=== PATIENT | female | born 1950 | race Caucasian/White ===

== ENCOUNTER 2021-12-23 14:43 | Emergency (ER) | payer MEDICARE, OTHER, SELFPAY ==
[2021-12-23] VITALS (11 sets, daily range): BP systolic 133–190; BP diastolic 56–84; PULSE 60–73; RESP 16–22; TEMP 36.3–36.7; O2SAT 93–99; BMI 24.7
--- NOTE | 2021-12-23 14:41 | ECG_ITS ---
APPROVED REPORT Exam: Resting ECG HR:75 bpm ECG Measurements Heart Rate 75 AXES RI 215 P 39 QRSd 146 QRS -13 QT 421 T 128 QTc 450 Conclusion SINUS RHYTHM WITH FIRST DEGREE AV BLOCK LEFT BUNDLE BRANCH BLOCK [120+ ms QRS DURATION, 80+ ms Q/S IN V1/V2, 85+ ms R IN I/aVL/V5/V6] ABNORMAL ECG UNCONFIRMED REPORT Electronically signed by : Dylan Galicia MD 12/25/2021 15:14:18
--- NOTE | 2021-12-23 14:53 | XR_ITS ---
PROCEDURE INFORMATION: Exam: XR Chest Exam date and time: 12/23/2021 3:14 PM Age: 71 years old Clinical indication: Angina; Additional info: Chest pain TECHNIQUE: Imaging protocol: Radiologic exam of the chest. Views: 2 views. COMPARISON: No relevant prior studies available. FINDINGS: Lungs: Unremarkable. No consolidation. Pleural spaces: Unremarkable. No pleural effusion. No pneumothorax. Heart/Mediastinum: Unremarkable. No cardiomegaly. Bones/joints: Unremarkable. IMPRESSION: No acute findings.
[2021-12-23 15:02] LABS: Basophils # 0.1 K/mm3 (0-0.2); Eosinophils # 0.1 K/mm3 (0.0-0.4); Eosinophils % 1.1 % (0.1-12.0); Hematocrit 38.8 % (37.0-47.0); Hemoglobin 13.3 g/dL (12.2-16.2); Lymphocytes # 3.5 K/mm3 (0.7-4.5); Lymphocytes % 29.6 % (10-50); Mean Corpuscular HGB Conc 34.1 g/dL (31.8-35.4); Mean Corpuscular Hemoglobin 28.6 pg (27.0-31.2); Mean Corpuscular Volume 83.8 fl (81-99); Monocytes # 0.7 K/mm3 (0.1-1.0); Monocytes % 6.1 % (1.7-9.3); Neutrophils # 7.3 K/mm3 (1.8-7.8); Neutrophils % 62.2 % (37.0-80.0); Platelet Count 364 K/mm3 (142-424); Red Blood Count 4.64 M/mm3 (4.20-5.40); Red Cell Distribution Width 14.9 % (11.5-17.5); White Blood Count 11.8 K/mm3 (4.8-10.8)
[2021-12-23 15:03] LABS: Chloride 100 mmol/L (98-107); Potassium 4.6 mmoL/L (3.5-5.1); Sodium 136 mmol/L (136-145)
[2021-12-23 15:06] LABS: Anion Gap 19.6 mEq/L (5-15); Blood Urea Nitrogen 12 mg/dl (7-17); Calcium 9.4 mg/dl (8.4-10.2); Carbon Dioxide 21 mmol/L (22.0-30.0); Creatinine Clearance Estimated 55 mL/min (50-200); Estimated Glomerular Filt Rate 49 ml/min (>60); GFR (African American) 60 ML/MIN (>60); Glucose 116 mg/dl (74-100)
--- NOTE | 2021-12-23 15:15 | PC.NURSE ---
RUKHSANA AMES at bedside.
[2021-12-23 15:20] LABS: Troponin I < 0.01 ng/ml (0.00-0.034)
--- NOTE | 2021-12-23 15:21 | PC.NURSE ---
Pt transported to radiology via wheelchair.
--- NOTE | 2021-12-23 15:26 | PC.NURSE ---
Pt returned from radiology.
--- NOTE | 2021-12-23 15:49 | HMH.EDCP ---
Discharge Plan Disposition Patient Disposition: Home, Self-Care Condition: Good Referrals Follow up/Referrals: Sonido Melton APRN [Primary Care Provider] - See instructions Clinical Impressions Clinical Impression: Arm numbness left Discharge ED Provider: Lux Vazquez Chest Pain HPI General Chief Complaint: Chest Pain Stated Complaint: Chest Pain Time Seen by Provider: 12/23/21 15:00 Mode of Arrival: Ambulatory Source of Information: Patient Limitations: No Limitations Description of Symptoms (Recalled from ER Triage Doc. by RN): pt reports tingling radiating down L arm that started about 2 weeks ago, saw Sonido on , sees Dr Coffman on Saturday due to abnormal EKG taken on , denies SOB History of Present Illness HPI narrative: This is a 71-year-old female with history of ACS status post stenting currently on aspirin and Plavix, CVA with right-sided residual numbness who is presenting with left upper extremity tingling. Patient states that left upper extremity tingling has been going on for approximately 2 months. Today, she was lying down when she noticed that it got acutely more numb. Because of this, she came to the ED for further evaluation. Patient denies chest pain, shortness of breath, nausea, vomiting, diaphoresis, weakness, left lower extremity deficits, cranial nerve deficits. She also denies any trauma, fevers, chills, or any other concerning history GAGANDEEP Score for Stemi Age of Patient: 60-69 years old Heart Rate: 50-69 bpm Systolic Blood Pressure: 120-139 mmhg Serum Creatinine: 0.80-1.19 mg/dl CHF Killip Class: I-No CHF Other Risk Factors: ST Segment Deviation Stemi Risk Score: 130 Risk Stratification: 126-154 = Intermediate Risk Related Data Allergies Allergy/AdvReac Type Severity Reaction Status Date / Time No Known Allergies Allergy Verified 12/23/21 14:50 PFSH PFSH Social History Smoking Status: Current every day smoker alcohol intake: former current occupational status: unemployed Travel in the last 8 weeks: None ROS Obtained: Yes All systems reviewed & no additional complaints except as documented Physical Exam General General appearance: alert and in no apparent distress Head Head exam: atraumatic, normocephalic and normal inspection Eye Eye exam: Present normal appearance, PERRL and EOMI ENT ENT exam: Present normal exam, normal oropharynx, mucous membranes moist, TM's normal bilaterally and normal external ear exam Neck Neck exam: Present normal inspection, full ROM and trachea midline; Absent meningismus or lymphadenopathy Chest Chest inspection: Present normal inspection and symmetric chest wall rise; Absent tenderness Respiratory Respiratory exam: Present normal lung sounds bilaterally; Absent respiratory distress Cardiovascular Cardiovascular exam: Present regular rate and normal rhythm; Absent JVD Abdominal Exam Abdominal exam: Present soft and normal bowel sounds; Absent distention, tenderness or guarding Extremities Exam Extremities exam: Present normal inspection, full ROM and normal capillary refill; Absent calf tenderness Back Exam Back exam: Present normal inspection; Absent tenderness Neurological Exam Neurological exam: Present alert, oriented X3, CN II-XII intact and motor sensory deficit (Subjectively decreased feeling in left upper extremity as compared to normal. Motor strength intact. Right upper and lower extremity numbness at baseline.) Psychiatric Psychiatric exam: Present normal affect and normal mood Skin Skin exam: Present warm, dry, intact and normal color Lymphatic Lymphatic Findings: no adenopathy Medical Decision Making Medical Records Medical records reviewed: Yes I reviewed the patient's medical records. Chinedu Inquiry Pt receiving controlled substance: No Vital Signs: 12/23/21 14:43 12/23/21 15:00 12/23/21 15:30 Temperature 98.1 F Temperature Source Oral Pulse Rate 72 72 Pulse Rate [Right Radial] 73
--- NOTE | 2021-12-23 17:42 | PC.NURSE ---
ED MD AT BEDSIDE TO UPDATE PT AND FAMILY
--- NOTE | 2021-12-23 18:03 | PC.NURSE ---
pt family member requested to speak with the md tawana advised
[2021-12-23 18:32] LABS: Troponin I < 0.01 ng/ml (0.00-0.034)
== END 2021-12-23 19:04 | disposition home or self-care (01) ==
PROVIDERS: Emergency Provider Emergency Medicine; PCP Nurse Practitioner Family
DX: R07.9 Chest pain, unspecified (principal); R20.2 Paresthesia of skin; I10 Essential (primary) hypertension; I25.10 Atherosclerotic heart disease of native coronary artery without angina pectoris; E78.5 Hyperlipidemia, unspecified; F17.200 Nicotine dependence, unspecified, uncomplicated; Z86.73 Personal history of transient ischemic attack (TIA), and cerebral infarction without residual deficits; N17.9 Acute kidney failure, unspecified; I44.7 Left bundle-branch block, unspecified; Z79.02 Long term (current) use of antithrombotics/antiplatelets; Z79.82 Long term (current) use of aspirin; Z79.899 Other long term (current) drug therapy; Z56.0 Unemployment, unspecified
CPT/HCPCS: 36415; 71046; 80048; 84484; 85025; 93005; 96360; 99285

== ENCOUNTER 2021-12-25 09:20 | Day surgery (SDC) | payer MEDICARE, OTHER, SELFPAY ==
[2021-12-25] VITALS (21 sets, daily range): BP systolic 98–171; BP diastolic 31–104; PULSE 50–71; RESP 16–20; TEMP 36.6; O2SAT 93–100; BMI 24.5; BMI 24.7
--- NOTE | 2021-12-25 | IR_ITS ---
APPROVED REPORT Patient Location: Inpatient PROCEDURES Left heart catheterization Left ventriculogram Selective coronary angiogram Drug-eluting stent deployment to the proximal mid and distal right coronary artery Bilateral selective renal angiography Drug-eluting stent deployment to the left renal artery INDICATION Coronary artery disease, New onset left bundle branch, New onset and accelerated angina pectoris, Accelerated and poorly controlled hypertension, Suspect renal artery stenosis, Renal artery stenosis, Informed consent was obtained prior to the procedure. COMPLICATIONS none Estimated Blood Loss: less than 10 ml TECHNIQUE One percent lidocaine used to anesthetize the right anterior aspect of the wrist. The right radial artery was accessed via the Seldinger technique. A 6 Latvian sheath was placed in the right radial artery. 2.5 mg of verapamil, 800 mcg of nitroglycerin, 1mg Lidocaine and 5000 U Heparin were given through the arterial sheath. The papa catheter was also used to perform left heart catheterization, left ventriculogram and selective coronary angiogram. At the end the diagnostic angiogram therapeutic heparin was administered giving a therapeutic ACT and the guide catheter was placed in the right coronary followed by a Choice PT extra-support wire. A 3 mm x 38 mm Xience drug-eluting stent was deployed at 20 and then 22 vasiliy reducing the stenosis to 0%. An additional 3 mm x 38 mm Xience drug-eluting stent was placed proximal to the for stent yet still overlapping it and deployed at 24 vasiliy. An additional 2.5 x 12 mm resolute [place] stent was placed distal to the first stent placed yet still overlapping the distal aspect and deployed at 24 vasiliy. The balloon was brought back and deployed at 24 vasiliy to mesh between the 2 stents. JOANN II flow was present at the beginning the procedure with JOANN-3 flow at the end the procedure. After achieving excellent angiograph results the catheter was used to perform bilateral selective renal angiography. The guide catheter was placed in the left renal artery followed by a Choice PT extra-support wire. A 4 mm x 28 mm Xience drug-eluting stent was deployed at 22 vasiliy reducing the critical stenosis throughout the renal artery to 0%. At the end of the procedure the apparatus was removed the sheath was removed good hemostasis was achieved using TR banding patient was transferred to the postop putting in stable condition ANGIOGRAPHIC RESULTS The left main artery Has a distal 30% stenosis The left anterior descending artery Is proximally normal and then has mid vessel 30% stenosis followed by distal 30% stenoses. JOANN II flow was present The circumflex artery Is nondominant yet still large vessel with a mid vessel 40% stenosis at the bifurcation of the first and second obtuse marginal artery The right coronary artery Is dominant and has an anterior takeoff which has a proximal 70% followed by 50% followed by mid vessel 90% stenosis this all represents in-stent restenosis The MOSS ventriculogram reveals Normal 65% The left ventricular end-diastolic pressure 10 mmHg Right renal artery singular normal Left renal artery singular and has diffuse proximal and mid vessel 90% stenoses IMPRESSION Coronary disease as described above with successful stenting from the proximal mid and distal segment with 3 contiguous stents Normal ejection fraction Elevated LVEDP Severe left renal artery stenosis Successful stenting left renal artery severe disease reduced to 0% with 1 long drug-eluting stent PLAN 1. Dual antiplatelet therapy 2. Avoidance of tobacco products 3. LDL less than 55 to be achieved with high intensity statin 4. Cardiac rehabilitation 5.
[2021-12-25 09:32] LABS: Coronavirus 19, PCR Not Detected (NotDetected); Influenza A, PCR Not Detected (NotDetected); Influenza B, PCR Not Detected (NotDetected)
--- NOTE | 2021-12-25 14:04 | HMH.PHACL ---
PHA Quality Officer Discharge Med Marine Equipment Test Engineer: Marilee Hernandez has received discharge medication counseling on the following medications: -ASPIRIN (PREVIOUSLY TAKING) -ATENOLOL (PREVIOUSLY TAKING) -ATORVASTATIN (PREVIOUSLY TAKING) -CLOPIDOGREL (PREVIOUSLY TAKING) -NO OJ/ARB, PT BP CONTROLLED WITH AMLODIPINE PATIENT ASKED IF THE MD WAS CHANGING AROUND HER BLOOD PRESSURE MEDICATIONS TO INCLUDE A COMBINATION MEDICATION, I ASKED MEDARDO IN SIGNALING DESIGN ENGINEER AND SHE STATED NO CHANGES WERE MADE AND IF CHANGES WERE TO BE MADE REGARDING BP MEDS THAT WOULD BE ADDRESSED AT HER FOLLOW-UP CARDIOLOGY APPOINTMENT. THIS INFORMATION WAS RELAYED TO THE PATIENT AND SHE VERBALIZED NO ADDITIONAL QUESTIONS AT THIS TIME.
[2021-12-25 15:06] LABS: CATHL Activated Clotting Time 308 SEC (74-125)
[2021-12-26] VITALS: PULSE 70
[2021-12-26 04:00] VITALS: BP 139/54; PULSE 68; RESP 16; TEMP 37.1; O2SAT 93
--- NOTE | 2021-12-26 04:35 | PC.NURSE ---
pt has rested well this shift. A&OX4. dressing to cath site is CDI. no c/o pain this shift. CB is in reach.
[2021-12-26 05:00] VITALS: PULSE 70
--- NOTE | 2021-12-26 07:53 | EXP.PHA.VTE ---
[facility] Pharmacy VTE Monitoring Patient Demographics Admission date: 12/25/21 Report Date: 12/26/21 Time: 07:53 Patient Allergies No Known Allergies Allergy (Verified 12/25/21 08:32) Height: 1.7 m Weight: 71.668 kg Prophylaxis VTE Prophylaxis Ordered?: Yes Types of VTE Prophylaxis: TEDS Knee High Location of Applied Device: Bilateral Lower Extremeties
[2021-12-26 08:00] VITALS: BP 157/65; PULSE 76; RESP 16; TEMP 36.8; O2SAT 97
--- NOTE | 2021-12-26 09:15 | PC.NURSE ---
Educated patient about post heart cath radial site signs and symptoms of infection. Educated patient about limitations placed as she has a radial site from heart cath. Patient alert and oriented and able to verbalize understanding. Blue heart cath folder sent home with patient and educated patient on contents of folder. Radial site covered with telfa and tegaderm and dressing clean dry and intact before patient left floor with family member
--- NOTE | 2021-12-26 09:22 | HMH.PHAINT1 ---
Pharmacy Intervention Comments: clarified home medication list with list from clinic pharmacy.
== END 2021-12-26 10:00 | disposition home or self-care (01) ==
LOC: CATHLAB 09:22 → 2ND 15:08
PROVIDERS: Physician Assistant; PCP Nurse Practitioner Family; Visit Provider Internal Medicine
DX: I25.118 Atherosclerotic heart disease of native coronary artery with other forms of angina pectoris (principal); I10 Essential (primary) hypertension; I70.1 Atherosclerosis of renal artery; I44.7 Left bundle-branch block, unspecified; F17.210 Nicotine dependence, cigarettes, uncomplicated; Z79.899 Other long term (current) drug therapy; I77.1 Stricture of artery; Z20.822 Contact with and (suspected) exposure to COVID-19
CPT/HCPCS: 36251; 37236; 85347; 92928; 93458; 99152; 99153; 99285; C1725; C1769; C1875; C1876; C9600; C9803; J1644; Q9967; U0003; U0005

== ENCOUNTER → 2021-12-29 12:15 | Outpatient (CLI) | payer MEDICARE, OTHER, SELFPAY ==
--- NOTE | 2021-12-29 12:42 | CA_ITS ---
APPROVED REPORT EXAM: Comprehensive 2D, Doppler, and color-flow Echocardiogram Civil Attorney: Smitha Ferreira CRT Ht: 5 ft 7 in Wt: 157lbs BSA: 1.82 BP: 186/65 mmHg Indications: Abnormal ECG, Chest Pain, Shortness of Breath, CVA/TIA, Diabetes, Hyperlipidemia, Hypertension/HDD, smoker, 3 cardiac stents 12/25/21 and 1 renal stent 2D Dimensions LVOT 1.70 cm (M/F) 1.5-2.5 LA Volume 25.10 mL LA Volume Index 13.80 mL/m2 (M/F) 16-34 M-Mode Dimensions RVDd 2.02 cm (0.9-2.6) LA Diam 3.19 cm (1.9-4.0) LVDd 4.26 cm (3.5-5.7) Ao Diam 3.29 cm (2.0-3.7) LVDs 2.78 cm (3.5-5.7) IVSd 1.90 cm (0.6-1.1) PWd 0.72 cm (0.6-1.1) EF (Teich) 64.30% FS 34.70% EDV (Teich) 81.30 mL TAPSE 1.45 (<1.7) ESV (Teich) 29.00 mL LV Diastology E Decel Time 340.00 (160-240 msec) E/A Ratio 0.52 MED E' 4.10 (< 7 cm/sec) MED A' 9.10 cm/s E'/MED E' Ratio 12.10 (>14) LAT E' 5.20 (<10 cm/sec) LAT A' 8.00 cm/s E/LAT E' Ratio 9.54 (>14) Aortic Valve AO Peak GR. 9.30 mmHg Mitral Valve MV A Velocity 96.00 (40-130 cm/s) E/A Ratio 0.52 MV Decel. Time 340.00 (160-240 ms) Pulmonary Valve PV Peak Velocity 133.00 (50-150 cm/s) Tricuspid Valve TR P. Velocity 270.00 cm/s RAP Estimate 10.00 mmHg RVSP 39.10 mmHg Left Ventricle Technically difficult study because of the patient factors and poor acoustic windows. Left atrium is mildly enlarged, left ventricle is normal size mild concentric left ventricular hypertrophy, estimated ejection fraction 50%, there is moderate hypokinesis involving the inferior basal wall. Right Ventricle Right atrium and right ventricle are normal size and contractility. Aortic Valve Aortic valve is thickened and calcified without aortic stenosis or aortic insufficiency. Mitral Valve Mitral valve is grossly normal, there is trace mitral regurgitation. Tricuspid Valve Tricuspid valve grossly normal, there is trace tricuspid regurgitation, tricuspid regurgitation jet velocity is inadequate for calculation of the right ventricular systolic pressure. Pulmonic Valve Pulmonic valve is poorly visualized. Great Vessels Aortic root is normal size. Inferior vena cava is normal size with normal inspiratory collapse. Pericardium No significant pericardial effusion noted. Conclusion 1. Technically difficult study because of the patient factors and poor acoustic windows. Normal left ventricular size, mild concentric left ventricular hypertrophy, estimated ejection fraction approximately 50% with segmental wall motion abnormality described above, grade 1 diastolic dysfunction seen without tissue Doppler evidence of raise left atrial pressure. 2. Trace mitral and tricuspid regurgitation. 3. No significant pericardial effusion noted. 5. Inferior vena cava is normal size with normal inspiratory collapse. Electronically signed by : Michele Robbins MD 12/29/2021 14:56:11
--- NOTE | 2021-12-29 12:42 | CA_ITS ---
FINAL REPORT TECHNIQUE: Graded compression, spectral analysis and ultrasound images of the venous system of the upper extremity were obtained. CLINICAL HISTORY: swelling. Patient states she had an IV her left arm recently. She takes Plavix as well as 81 mg ASA daily. Recent heart cath with cardiac stents placed. FINDINGS: The jugular vein, subclavian vein, axillary vein, brachial vein, cephalic vein and basilic venous system are fully compressible and demonstrate no evidence of thrombosis. IMPRESSION: No evidence of thrombosis of the venous system of the left upper extremity. Reviewed, Interpreted and Dictated by Nikita Lagos MD Transcribed by Charissa Lyn Authenticated and [facility]
--- NOTE | 2021-12-29 12:42 | US_ITS ---
FINAL REPORT CLINICAL HISTORY: CLAUDICATION,COLD FEET,NUMBNESS FEET,DM,HTN,SMOKER,CAD,CVA FINDINGS: ANKLE/BRACHIAL INDICES FINDINGS: Pressure indices are as follows: RIGHT LOWER EXTREMITY: Ankle brachial pressure index: 0.52 Comments: Significantly depressed LEFT LOWER EXTREMITY: Ankle brachial pressure index: 0.52 Comments: Significantly depressed IMPRESSION: Moderate to severe arterial occlusive disease bilaterally. Consider a CTA for further evaluation. Reviewed, Interpreted and Dictated by Nikita Lagos MD Transcribed by José Miguel Castillo Authenticated and [facility]
--- NOTE | 2021-12-29 12:44 | CA_ITS ---
FINAL REPORT TECHNIQUE: Color Doppler, duplex Doppler and hutson scale sonography of the bilateral neck arterial vasculature was performed. Velocities were measured in the carotid arteries. Stenosis evaluation based on the validated velocity criteria. CLINICAL HISTORY: BRUIT,DM,CAD,SMOKER,HTN,HLD FINDINGS: The peak systolic velocity of the right common carotid artery is 71 cm/s. The peak systolic velocity of the right internal carotid artery is 123 cm/s and end diastolic velocity 26 cm/s. The ICA/CCA ratio is 1.7. A moderate amount of plaque is present at the carotid bifurcation. The right external carotid artery is patent. The right vertebral artery is patent with antegrade flow. The peak systolic velocity of the left common carotid artery is 76 cm/s. The peak systolic velocity of the left internal carotid artery is 153 cm/s and end diastolic velocity 20 cm/s. The ICA/CCA ratio is 2.0. A moderate amount of plaque is present at the carotid bifurcation. The left external carotid artery is patent.The left vertebral artery is patent with antegrade flow. IMPRESSION: Less than 50% bilateral carotid stenosis. Bilateral patent vertebral arteries with antegrade flow. If indicated, CTA or MRA could further evaluate. Reviewed, Interpreted and Dictated by Nikita Lagos MD Transcribed by Melissa Singh Authenticated and . [facility]
== END ==
PROVIDERS: PCP Nurse Practitioner Family; Visit Provider Physician Assistant
DX: M79.89 Other specified soft tissue disorders (principal); E78.5 Hyperlipidemia, unspecified; F17.200 Nicotine dependence, unspecified, uncomplicated; I10 Essential (primary) hypertension; I20.8 Other forms of angina pectoris; I44.7 Left bundle-branch block, unspecified; R06.09 Other forms of dyspnea; R20.0 Anesthesia of skin; R94.31 Abnormal electrocardiogram [ECG] [EKG]; Z86.73 Personal history of transient ischemic attack (TIA), and cerebral infarction without residual deficits; R09.89 Other specified symptoms and signs involving the circulatory and respiratory systems
CPT/HCPCS: 93306; 93880; 93923; 93971

== ENCOUNTER → 2022-01-01 09:15 | Outpatient (CLI) | payer MEDICARE, OTHER, SELFPAY ==
[2022-01-01 10:14] LABS: Chloride 104 mmol/L (98-107); Potassium 4.5 mmoL/L (3.5-5.1); Sodium 140 mmol/L (136-145)
[2022-01-01 10:17] LABS: Blood Urea Nitrogen 17 mg/dl (7-17); Calcium 9.6 mg/dl (8.4-10.2); Carbon Dioxide 21 mmol/L (22.0-30.0); Estimated Glomerular Filt Rate 37 ml/min (>60); GFR (African American) 45 ML/MIN (>60); Glucose 221 mg/dl (74-100)
[2022-01-01 10:23] LABS: Anion Gap 19.5 mEq/L (5-15)
== END ==
PROVIDERS: PCP Nurse Practitioner Family; Visit Provider Nurse Practitioner Family
DX: I25.10 Atherosclerotic heart disease of native coronary artery without angina pectoris (principal); I10 Essential (primary) hypertension; I44.7 Left bundle-branch block, unspecified; R09.89 Other specified symptoms and signs involving the circulatory and respiratory systems; I73.9 Peripheral vascular disease, unspecified; E78.5 Hyperlipidemia, unspecified; R20.0 Anesthesia of skin; R68.89 Other general symptoms and signs; R94.31 Abnormal electrocardiogram [ECG] [EKG]; F17.200 Nicotine dependence, unspecified, uncomplicated; Z86.73 Personal history of transient ischemic attack (TIA), and cerebral infarction without residual deficits; Z95.5 Presence of coronary angioplasty implant and graft; Z98.890 Other specified postprocedural states
CPT/HCPCS: 36415; 80048

== ENCOUNTER 2023-08-01 10:12 | Emergency (ER) | payer MEDICARE, OTHER, SELFPAY ==
[2023-08-01 10:14] VITALS: BP 159/61; PULSE 67; RESP 18; TEMP 36.4; O2SAT 99; BMI 25.2
[2023-08-01 10:20] VITALS: BP 159/61
[2023-08-01] MEDS: METHOCARBAMOL 500MG TABLET 500 MG PO (10:53)
[2023-08-01] MEDS: ACETAMINOPHEN 500MG TAB 1000 MG PO (10:53)
[2023-08-01] MEDS: KETOROLAC 30MG/ML VIAL 30 MG IM (10:53)
[2023-08-01] MEDS: LIDOCAINE 5% TRANSDERMAL PATCH 1 EACH TP (10:53)
--- NOTE | 2023-08-01 11:14 | HMH.EDGENADL ---
Discharge Plan Disposition Patient Disposition: Home, Self-Care Condition: Good Prescriptions Prescriptions: New ketorolac 10 mg tablet 10 mg PO Q8H PRN (Reason: pain) Qty: 12 0RF methocarbamol 750 mg tablet 750 mg PO Q8H Qty: 20 0RF lidocaine [Lidoderm] 5 % adhesive patch,medicated 1 patch topical DAILY Qty: 15 0RF Rx Instructions: leave on most painful area for up to 12 hrs No Action multivitamin Tablet 1 tab PO DAILY atorvastatin 40 mg tablet 40 mg PO DAILY Patient Comments: TAKE ONE (1) TABLET BY MOUTH EVERY DAY clopidogrel 75 mg tablet 75 mg PO DAILY Patient Comments: TAKE ONE TABLET BY MOUTH ONCE DAILY aspirin 81 mg tablet,delayed release (DR/EC) 81 mg PO DAILY atenolol 50 mg tablet 50 mg PO DAILY loratadine 10 mg tablet 10 mg PO DAILY Patient Comments: TAKE ONE (1) TABLET BY MOUTH EVERY DAY diclofenac sodium 1 % gel 2 g topical DAILY Tradjenta 5 mg tablet 5 mg PO DAILY losartan 50 mg tablet 50 mg PO QDAY Qty: 90 3RF (DME) blood pressure monitor Kit See Rx Instructions .ROUTE .MEDSUPPLY Qty: 1 0RF Rx Instructions: As directed Referrals Follow up/Referrals: Sonido Melton APRN [Primary Care Provider] - See instructions Activity Restrictions/Add. Instructions Additional Instructions/Restrictions: You were evaluated in the emergency department today. Please package pick up your prescriptions at the pharmacy and take them as prescribed. Follow-up closely with your primary care provider. You may also take Tylenol in addition to these medications. Return to the emergency department for new or worsening symptoms. Clinical Impressions Clinical Impression: Acute right-sided low back pain with sciatica Instructions Patient Instructions: DI for Sciatica, DI for Acute Pain -- Adult Discharge ED Provider: Juhi Griffin General Adult HPI General Chief complaint: PAIN Stated complaint: Pain in Right hip and partially numbness in R leg Time Seen by Provider: 08/01/23 10:29 Mode of Arrival: Family Vehicle Source of Information: Patient and Medical Record Limitations: No Limitations Description of Symptoms (Recalled from ER Triage Doc. by RN): Pt c/o R hip-buttock are pain that radiates down her RLE. She also reports numbness to her RLE like it's neuropathy but I've never had it before . She is diabetic and takes insulin daily. She also reports a previous stroke that has left her right sided numbness that she feels is about the same since her stroke. Reports the pain began on Saturday when she awoke, denies any injury or falls recently. History of Present Illness HPI narrative: This patient is a 73-year-old female with a history of prior CVA with right-sided deficits, hypertension, hyperlipidemia, CAD, type 2 diabetes, and left bundle branch block presenting to the emergency department for evaluation with concern for pain in her right buttocks that radiates down the posterior aspect of her right lower extremity. She states it feels like neuropathy but she has never had issues like that before. She denies any known traumatic injuries or falls. She also denies any fevers, redness, warmth, swelling, or skin changes over her hip. No other concerns noted at this time. Related Data Home Medications Medication Instructions Recorded Confirmed aspirin 81 mg tablet,delayed 81 mg PO DAILY Heart disease 12/25/21 06/17/23 release atenolol 50 mg tablet 50 mg PO DAILY blood pressure 12/25/21 06/17/23 atorvastatin 40 mg tablet 40 mg PO DAILY Cholesterol 12/25/21 06/17/23 clopidogrel 75 mg tablet 75 mg PO DAILY platelet inhibitor 12/25/21 06/17/23 diclofenac sodium 1 % topical gel 2 g topical DAILY Arthritis 12/25/21 06/17/23 linagliptin 5 mg tablet (Tradjenta) 5 mg PO DAILY Diabetes 12/25/21 06/17/23 loratadine 10 mg tablet 10 mg PO DAILY Allergy symptoms 12/25/21 06/17/23 multivitamin 1 tab PO DAILY 06/17/23 06/17/23 Previous Rx's Medication Instructions Recorded losartan 50 mg tablet 50 mg PO QDAY #90 tabs 01/01/22 blood pressure monitor #1 ea 01/16/22 ketorolac 10 mg tablet 10 mg PO Q8H PRN pain #12 tabs 08/01/23 lidocaine 5 % topical patch 1 patch topical DAILY #15 ea 08/01/23 (Lidoderm) methocarbamol 750 mg tablet 750 mg PO Q8H pain #20 tabs 08/01/23 Allergies Allergy/AdvReac Type Severity Reaction Status Date / Time No Known Allergies Allergy Verified 06/17/23 13:19 [facility] Disclaimer: The information contained in this section may have been updated after the patient was seen, as this information can be updated by other users. Medical History Diabetes mellitus Bilateral carotid artery stenosis Peripheral arterial disease Tobacco dependence History of CVA (cerebrovascular accident) HLD (hyperlipidemia) HTN (hypertension) Coronary artery disease LBBB (left bundle branch block) Surgical History History of stent insertion of renal artery H/O cardiac catheterization S/P drug eluting coronary stent placement Social History Smoking Status: Current every day smoker alcohol intake: former current occupational status: unemployed Travel in the last 8 weeks: None ROS Obtained: Yes All systems reviewed & no additional complaints except as documented Physical Exam General General appearance: alert and in no apparent distress Head Head exam: atraumatic and normocephalic Eye Eye exam: Present normal appearance, PERRL and EOMI ENT ENT exam: Present normal exam, normal oropharynx, mucous membranes moist and normal external ear exam Neck Neck exam: Present normal inspection, full ROM and trachea midline; Absent tenderness Chest Chest inspection: Present normal inspection and symmetric chest wall rise; Absent tenderness Respiratory Respiratory exam: Present normal lung sounds bilaterally; Absent respiratory distress, wheezes, stridor or accessory muscle use Cardiovascular Cardiovascular exam: Present regular rate and normal rhythm Abdominal Exam Abdominal exam: Present soft; Absent distention, tenderness or guarding Extremities Exam Extremities exam: Present normal inspection, full ROM and normal capillary refill; Absent tenderness or edema Back Exam Back exam: Present full ROM and other (Tender to palpation over the right buttock); Absent tenderness Neurological Exam Neurological exam: Present alert, oriented X3, CN II-XII intact and normal gait; Absent motor sensory deficit Psychiatric Psychiatric exam: Present normal affect and normal mood Skin Skin exam: Present warm and dry Medical Decision Making Medical Records Medical records reviewed: Yes I reviewed the patient's medical records. [place] Inquiry Pt receiving controlled substance: No Vital Signs: 08/01/23 10:14 08/01/23 10:20 08/01/23 11:15 Temperature 97.6 F Temperature Source Oral Pulse Rate 65 Pulse Rate [Right] 67 Respiratory Rate 18 Blood Pressure 159/61 H 153/75 H Blood Pressure [Right Arm] 159/61 H Blood Pressure Mean [Right Arm] 93 Blood Pressure Source Blood Pressure Source [Right Arm] Automatic Cuff Blood Pressure Position 02 Sat by Pulse Oximetry 99 97 Oxygen Delivery Method Room Air 08/01/23 11:55 Temperature 98.0 F Temperature Source Oral Pulse Rate 59 L Pulse Rate [Right] Respiratory Rate 18 Blood Pressure 155/80 H Blood Pressure [Right Arm] Blood Pressure Mean [Right Arm] Blood Pressure Source Automatic Cuff Blood Pressure Source [Right Arm] Blood Pressure Position Sitting 02 Sat by Pulse Oximetry Oxygen Delivery Method Room Air Lab Data Lab results reviewed: Yes I reviewed the patient's lab results. Orders (Tests/Meds): ED MEDICATIONS Discontinued Medications Generic Name Dose Route Start Last Admin Trade Name Freq PRN Reason Stop Dose Admin Acetaminophen 1,000 mg 08/01/23 10:41 08/01/23 10:53 Acetaminophen 500mg Tab PO 08/01/23 10:42 1,000 mg ONCE ONE Administration Ketorolac Tromethamine 30 mg 08/01/23 10:41 08/01/23 10:53 Ketorolac 30mg/Ml Vial IM 08/01/23 10:42 30 mg ONCE ONE Administration Lidocaine 1 each 08/01/23 10:41 08/01/23 10:53 Lidocaine 5% Transdermal Patch TP 08/01/23 10:42 1 each ONCE ONE Administration Methocarbamol 500 mg 08/01/23 10:42 08/01/23 10:53 Methocarbamol 500mg Tablet PO 08/01/23 10:43 500 mg ONCE ONE Administration Medical Decision Narrative: In summary, this patient is a 73-year-old female presenting to the Emergency Department for evaluation of right buttock pain radiating down the posterior aspect of the right leg. Differential diagnoses considered include but are not limited to sciatica, disc herniation, musculoskeletal strain/sprain. Ruling out the most morbid conditions drove assessment. On exam, the patient is well-appearing. She has no skin changes or swelling of the right lower extremity. Doubt DVT based on clinical exam. No midline spinal tenderness. No focal neurologic deficits. I feel most likely that the patient has sciatica based on history and presentation. She is still ambulatory. 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 Patient elects to try medications for symptomatic improvement, including topical Lidoderm patch, oral Robaxin, oral Tylenol, and IM Toradol. On reassessment, the patient is resting comfortably and states that she is feeling much better. She is able to ambulate. Given this, feel she is appropriate for discharge with instructions for supportive management and prescriptions for Toradol, Robaxin, and Lidoderm patches to treat sciatica. Strict return precautions were given as well as instructions for close patient follow-up. Critical Care Critical Care Time Critical Care Time: No
[2023-08-01 11:15] VITALS: BP 153/75; PULSE 65; O2SAT 97
[2023-08-01 11:55] VITALS: BP 155/80; PULSE 59; RESP 18; TEMP 36.7; O2SAT 95
== END 2023-08-01 11:56 | disposition home or self-care (01) ==
PROVIDERS: Emergency Provider Emergency Medicine; PCP Nurse Practitioner Family
DX: M54.41 Lumbago with sciatica, right side (principal); F17.210 Nicotine dependence, cigarettes, uncomplicated
CPT/HCPCS: 96372; 99283

== ENCOUNTER 2024-03-09 09:14 | Outpatient (CLI) | payer MEDICARE, SELFPAY ==
[2024-03-09 10:14] LABS: Basophils # 0.1 K/mm3 (0-0.2); Eosinophils # 0.2 K/mm3 (0.0-0.4); Eosinophils % 1.8 % (0.1-12.0); Hematocrit 44.1 % (37.0-47.0); Hemoglobin 14.9 g/dL (12.2-16.2); Lymphocytes # 2.7 K/mm3 (0.7-4.5); Lymphocytes % 24.7 % (10-50); Mean Corpuscular HGB Conc 33.8 g/dL (31.8-35.4); Mean Corpuscular Hemoglobin 30.5 pg (27.0-31.2); Mean Corpuscular Volume 90.4 fl (81-99); Mean Platelet Volume 8.4 fl (7.4-10.4); Monocytes # 0.6 K/mm3 (0.1-1.0); Monocytes % 5.8 % (1.7-9.3); Neutrophils # 7.3 K/mm3 (1.8-7.8); Neutrophils % 66.6 % (37.0-80.0); Platelet Count 253 K/mm3 (142-424); Red Blood Count 4.88 M/mm3 (4.20-5.40); Red Cell Distribution Width 14.2 % (11.5-17.5)
[2024-03-09 10:25] LABS: Anion Gap 12.6 mEq/L (5-15); Blood Urea Nitrogen 15 mg/dl (7-17); Carbon Dioxide 21 mmol/L (22.0-30.0); Chloride 107 mmol/L (98-107); Creatinine,Urine Random 25 mg/dL (Not Estab.); Estimated Glomerular Filt Rate 44 ml/min (>60); GFR (African American) 54 ML/MIN (>60); Glucose 252 mg/dl (74-100); Phosphorous 4.1 mg/dl (2.5-4.5); Potassium 4.6 mmoL/L (3.5-5.1); Sodium 136 mmol/L (136-145)
[2024-03-09 10:36] LABS: Intact Parathyroid Hormone 50.3 pg/mL (7.5-53.5)
[2024-03-09 10:40] LABS: 25-OH Vitamin D, Total 57.5 ng/mL (30-100)
== END 2024-03-09 23:59 | disposition home or self-care (01) ==
LOC: LAB 09:16
PROVIDERS: PCP Nurse Practitioner Family; Visit Provider Student in an Organized Health Care Education/Training Program
DX: I12.9 Hypertensive chronic kidney disease with stage 1 through stage 4 chronic kidney disease, or unspecified chronic kidney disease (principal); N18.30 Chronic kidney disease, stage 3 unspecified; F17.200 Nicotine dependence, unspecified, uncomplicated
CPT/HCPCS: 36415; 80069; 82306; 82570; 83970; 84156; 85025

== ENCOUNTER 2024-05-04 12:40 | Outpatient (CLI) | payer MEDICARE, OTHER, SELFPAY ==
--- NOTE | 2024-05-04 12:48 | US_ITS ---
FINAL REPORT CLINICAL HISTORY: .PALP AREA RT LAT WRIST COMPARISON: None FINDINGS: Limited sonographic images were obtained of the soft tissues in the right wrist at the area of palpable abnormality. There is a 7 x 5 mm complex partially anechoic structure corresponding with the palpable abnormality, favor ganglion cyst. IMPRESSION: Probable ganglion cyst. Recommend wrist MRI to confirm. Reviewed, Interpreted and Dictated by Nikita Lagos MD Transcribed by Mariana Kaiser Authenticated and . [facility]
== END 2024-05-04 23:59 | disposition home or self-care (01) ==
LOC: RAD 12:42
PROVIDERS: PCP Nurse Practitioner Family; Visit Provider Nurse Practitioner Family
DX: L72.9 Follicular cyst of the skin and subcutaneous tissue, unspecified (principal)
CPT/HCPCS: 76882

== ENCOUNTER 2024-08-18 09:45 | Day surgery (SDC) | payer OTHER, SELFPAY ==
[2024-08-17 14:27] VITALS: BMI 24.5
[2024-08-18] MEDS: CYCLOPENTOLATE 2% OPHTH SOLN 2ML BOTTLE OP ×3 (11:00→11:10)
[2024-08-18] MEDS: TETRACAINE 0.5% OPTH SOL 15ML OP ×3 (11:00→11:10)
[2024-08-18] MEDS: PHENYLEPHRINE 2.5% OPHTH SOLN 2ML OP ×3 (11:00→11:10)
[2024-08-18 11:06] VITALS: BP 180/76; PULSE 60; RESP 16; TEMP 36.2; O2SAT 96
[2024-08-18 11:50] LABS: POC Glucose,Bedside 153 (70-110)
[2024-08-18 12:55] VITALS: BP 186/78; PULSE 61; RESP 98; TEMP 36.6; O2SAT 98
[2024-08-18 13:00] VITALS: BP 160/68; PULSE 60; RESP 98; TEMP 36.6; O2SAT 97
[2024-08-18] MEDS: TIMOLOL 0.5% OPTH SOLN 5ML OP (13:04)
[2024-08-18 13:05] VITALS: BP 152/66; PULSE 60; RESP 98; TEMP 36.6; O2SAT 99
[2024-08-18] MEDS: LIDOCAINE 1% PF 2ML AMPULE 2 ML IJ (13:05)
[2024-08-18] MEDS: MIDAZOLAM 2MG/2ML VIAL 1 MG IV (13:05)
[2024-08-18] MEDS: SODIUM CHLORIDE 0.9% 10ML FLUSH SYRINGE 10 ML IV (13:06)
[2024-08-18 13:10] VITALS: BP 167/73; PULSE 60; RESP 98; TEMP 36.6; O2SAT 99
[2024-08-18 13:39] VITALS: BP 151/72; PULSE 62; RESP 16; TEMP 36.3; O2SAT 95
== END 2024-08-18 13:23 | disposition home or self-care (01) ==
LOC: OR 09:46
PROVIDERS: PCP Nurse Practitioner Family; Visit Provider Ophthalmology
PROC: (CPT 66984; principal; 2024-08-18 13:00)
DX: H26.9 Unspecified cataract (principal)
CPT/HCPCS: 66984; 82962; J2250; V2632

== ENCOUNTER 2024-09-01 08:22 | Day surgery (SDC) | payer OTHER, SELFPAY ==
[2024-08-28 11:36] VITALS: BMI 24.3
[2024-09-01] VITALS (8 sets, daily range): BP systolic 127–195; BP diastolic 62–80; PULSE 60–61; RESP 16–18; TEMP 36.4–36.6; O2SAT 97–99
[2024-09-01] MEDS: PHENYLEPHRINE 2.5% OPHTH SOLN 2ML OP ×3 (09:25→09:35)
[2024-09-01] MEDS: TETRACAINE 0.5% OPTH SOL 15ML OP ×3 (09:25→09:35)
[2024-09-01] MEDS: CYCLOPENTOLATE 2% OPHTH SOLN 2ML BOTTLE OP ×3 (09:25→09:35)
[2024-09-01] MEDS: SODIUM CHLORIDE 0.9% 10ML FLUSH SYRINGE 10 ML IV (10:09)
[2024-09-01] MEDS: MIDAZOLAM 2MG/2ML VIAL 1 MG IV (10:09)
[2024-09-01] MEDS: TIMOLOL 0.5% OPTH SOLN 5ML OP (10:21)
[2024-09-01] MEDS: LIDOCAINE 1% PF 2ML AMPULE 2 ML IJ (10:21)
[2024-09-01] MEDS: TRI-MOXI 15MG/1MG/ML 1ML OPHTH VIAL 1 ML OP (10:22)
--- NOTE | 2024-09-01 12:45 | P.PCN_ITS ---
[facility] [place] Procedure Note Date: 09/01/24 Time: 12:46 Procedure Note:: cat.
--- NOTE | 2024-09-01 12:45 | P.PCN_ITS ---
[facility] Procedure Note Date: 09/01/24 Time: 12:45 Procedure Note:: cat.
--- NOTE | 2024-09-01 12:45 | HMH.PROCNOTE ---
[facility] Procedure Note Date: 09/01/24 Time: 12:45 Procedure Note:: cat.
--- NOTE | 2024-09-01 12:45 | HMH.PROCNOTE ---
[facility] Procedure Note Date: 09/01/24 Time: 12:46 Procedure Note:: cat.
--- NOTE | 2024-09-01 12:48 | P.PCN_ITS ---
[facility] Procedure Note Date: 09/01/24 Time: 12:49 Procedure Note:: Preoperative Diagnosis: Cataract combined NS Cortical Complex [Right] Eye Postop diagnosis: same Operation: Microscopic phacoemulsification with intraocular lens implant [Right] Eye Specimen: None Blood Loss: None The patient was examined in the office with a complaint of poor vision in the [right] eye. The patient reports that this interferes with ADLs such as reading, watching TV and/or driving or the vision is like looking through a foggy haze and is very troubling. The patient was examined and found to have a visually significant cataract with best corrected vision of [20/400] by refraction and/or glare testing. Treatment options, risks and benefits were explained and the patient elected to have cataract surgery in an attempt to improve their vision. The patient had the eye anesthetized with topical tetracaine, the eye ways prepped and draped in the usual fashion for cataract surgery. A paracentesis and a temporal keratotomy were made. 0.2cc of 1% lidocaine PF was placed into the anterior chamber. And aqueous/viscoelastic exchange was done and a 360 degree capsulorexis was performed. Through hydrodissection and delineation with BSS on a cannula was done. The lens nucleus was phecoemulsified with CDE of [8.05]. Residual cortical material was removed using automated I&A The capsular bag was deepened with viscoelastica and a PCIOL was placed in the capsular bag with good centration and stability. Residual viscoelastic was removed using automated I&A. The keratotomy incision was hydrated with BSS on a cannula. The wound were checked and found to be water tight. IOP was checked digitally and adjusted as needed so as not to be too high. 1 drop of timolol 0.5%, ofloxacin, prednisolone acetate and ketorolac was instilled and eye shield taped over the eye. The patient was taken to recovery in good condition and will be seen postoperatively.
[2024-09-01 14:50] LABS: POC Glucose,Bedside 146 (70-110)
== END 2024-09-01 10:40 | disposition home or self-care (01) ==
PROVIDERS: PCP Nurse Practitioner Family; Visit Provider Ophthalmology
PROC: (CPT 66984; principal; 2024-09-01 10:30)
DX: H25.811 Combined forms of age-related cataract, right eye (principal)
CPT/HCPCS: 66984; 82962; J2250; V2632

== ENCOUNTER 2024-09-07 08:05 | Outpatient (CLI) | payer MEDICARE, OTHER, SELFPAY ==
[2024-09-07 08:11] LABS: Microscopic, Urine URINE MICROSCOPIC (MICROSCOPIC)
[2024-09-07 08:41] LABS: Appearance,Urine CLOUDY (Clear); Bilirubin,Urine Negative (Negative); Blood, Urine Negative (Negative); Color,Urine YELLOW (Yellow); Glucose,Urine (UA) 2+ (Negative); Ketones,Urine Negative (Negative); Leukocyte Esterase,Urine 2+ (Negative); Nitrate,Urine Negative (Negative); Protein,Urine Negative (Negative); Urobilinogen,Urine 0.2 EU/dl (0.2)
[2024-09-07 08:42] LABS: Hematocrit 42.4 % (37.0-47.0); Hemoglobin 14.1 g/dL (12.2-16.2); Mean Corpuscular HGB Conc 33.3 g/dL (31.8-35.4); Mean Corpuscular Hemoglobin 29.9 pg (27.0-31.2); Mean Corpuscular Volume 89.8 fl (81-99); Nucleated Red Blood Cells # 0 10^3/uL; Nucleated Red Blood Cells % 0 %; Platelet Count 207 K/mm3 (142-424); Red Blood Count 4.72 M/mm3 (4.20-5.40); Red Cell Distribution Width 13.9 % (11.5-17.5); Red Cell Distribution Width-SD 45.4 fL; White Blood Count 9.1 K/mm3 (4.8-10.8)
[2024-09-07 08:54] LABS: Microalbumin/Creatinine Ratio 58.6
[2024-09-07 09:01] LABS: Creatinine,Urine Random 45 mg/dL (Not Estab.)
[2024-09-07 09:06] LABS: Albumin Level 3.9 g/dl (3.5-5.0); Chloride 105 mmol/L (98-107); Potassium 4.6 mmoL/L (3.5-5.1); Sodium 135 mmol/L (136-145)
[2024-09-07 09:09] LABS: Blood Urea Nitrogen 20 mg/dl (7-17); Calcium 9.2 mg/dl (8.4-10.2); Estimated Glomerular Filt Rate 44 ml/min (>60); GFR (African American) 53 ML/MIN (>60); Glucose 354 mg/dl (74-100); Phosphorous 3.8 mg/dl (2.5-4.5)
[2024-09-07 09:11] LABS: WBC,Urine 50-100 #/hpf (0-3)
[2024-09-07 09:12] LABS: Bacteria,Urine 3+ /lpf; RBC,Urine Occasional #/hpf (0-3)
[2024-09-07 10:39] LABS: Anion Gap 11.6 mEq/L (5-15); Carbon Dioxide 23 mmol/L (22.0-30.0)
== END 2024-09-07 23:59 | disposition home or self-care (01) ==
LOC: LAB 08:08
PROVIDERS: PCP Nurse Practitioner Family; Visit Provider Student in an Organized Health Care Education/Training Program
DX: N18.31 Chronic kidney disease, stage 3a (principal); R79.89 Other specified abnormal findings of blood chemistry
CPT/HCPCS: 36415; 80069; 81001; 82043; 82570; 84156; 85027; 87086; 87088; 87186

== ENCOUNTER 2024-09-29 16:10 | Outpatient (CLI) | payer MEDICARE, OTHER, SELFPAY ==
--- NOTE | 2024-09-29 | CA_ITS ---
FINAL REPORT TECHNIQUE: Multiple transverse and longitudinal images were performed of right the femoral-popliteal deep venous system with augmentation and compression maneuvers. CLINICAL HISTORY: DM, Right ankle pain FINDINGS: Right lower extremity duplex ultrasound demonstrates normal flow in the deep venous system. There is no abnormal echogenicity to suggest thrombus. There is normal compression and augmentation. IMPRESSION: No evidence of right DVT. Reviewed, Interpreted and Dictated by Jimmy Rios MD Transcribed by Daniella Shay Authenticated and [facility]
== END 2024-09-29 23:59 | disposition home or self-care (01) ==
LOC: RT 16:11
PROVIDERS: PCP Nurse Practitioner Family; Visit Provider Nurse Practitioner Family
DX: M79.661 Pain in right lower leg (principal); M25.571 Pain in right ankle and joints of right foot; E11.9 Type 2 diabetes mellitus without complications
CPT/HCPCS: 93971

== ENCOUNTER 2024-12-16 09:24 | Outpatient (CLI) | payer MEDICARE, OTHER, SELFPAY ==
--- NOTE | 2024-12-16 09:27 | XR_ITS ---
FINAL REPORT CLINICAL HISTORY: left middle finger pain COMPARISON: None FINDINGS: AP, oblique, and lateral views of the left hand were obtained. There is no prior exam for comparison. There is no acute fracture of the left hand. Multijoint degenerative changes noted. There is joint space narrowing with subchondral lucencies involving the third PIP joint. Focal soft tissue swelling is identified. IMPRESSION: Joint space narrowing with subchondral lucencies involving the third PIP joint, with focal soft tissue swelling present as well. Septic arthritis is not excluded. Correlation with MRI is suggested for further evaluation if indicated. Reviewed, Interpreted and Dictated by Angelika Julien MD Transcribed by Linda Menon Authenticated and [facility]
--- OUTSIDE RECORDS SUMMARY | 2024-12-16 09:35 | XMS_ITS | Clinical Summary ---
Author Organization [facility] Address [address] [place] [address] Care Team Providers Care Network Operations Lead Name Role Phone Sonido Melton RINKU Primary Care Provider [phone] Allergies No known active allergies Medications aspirin 81 MG EC tablet Take 1 tablet (81 mg) by mouth 1 (one) time each day. Active atenolol (Tenormin) 50 MG tablet Take 1 tablet (50 mg) by mouth 1 (one) time each day. Active atorvastatin (Lipitor) 40 MG tablet Take 1 tablet (40 mg) by mouth 1 (one) time each day. Active clopidogrel (Plavix) 75 MG tablet Take 1 tablet (75 mg) by mouth 1 (one) time each day. Active linaGLIPtin (Tradjenta) 5 MG tablet Take 1 tablet (5 mg) by mouth 1 (one) time each day. 12/22/2021 Active insulin glargine (Lantus) 100 UNIT/ML injection vial Inject 0.05 mL (5 Units) under the skin every night. Active valsartan (Diovan) 320 MG tablet Take 1 tablet (320 mg) by mouth 1 (one) time each day. Active folic acid (Folvite) 1 MG tablet Take 1 tablet by mouth daily. Active cholecalciferol 10 MCG (400 UNIT) tablet Take 1 tablet by mouth daily. Active Active Problems Problem Noted Date Diagnosed Date Other specified abnormal findings of blood chemi stry 03/17/2024 CKD stage 3a, GFR 45-59 ml/min 03/17/2024 Persistent proteinuria 03/17/2024 Hx of completed stroke 03/17/2024 Vitamin D deficiency 05/30/2021 Hyperlipidemia 02/27/2021 Arthritis 02/09/2019 Essential hypertension 05/06/2018 Diabetes mellitus 02/13/2009 Immunizations Immunization Administration Dates Next Due Influenza, High-dose, Split Virus, Trivalent, Injectable, preservative free 02/18/2024,02/06/2018 Influenza, Unspecified 12/22/2014,2013,01/15/2011,01/18 Influenza, high-dose, quadrivalent 01/22,12/21/2021,02/27/2021,02/06,02/06/2018 Influenza, injectable, quadrivalent 12/2019,02/09/2019,03/07/2017,02/13 Influenza, seasonal, injectable 01/18/2009 Novel [id number], all formulations 03/16/2009 Pneumococcal Conjugate PCV 13 02/09/2019 Pneumococcal Polysaccharide PPV23 06/29/2020,11/2015 Tdap 06/29/2020 Social History Tobacco Use Types Packs/Day Years Used Date Smoking Tobacco: Every Day Cigarettes Smokeless Tobacco: Never Tobacco Cessation:Ready to Q uit: Not Asked; Counseling Given: Not Answered Alcohol Use Standard Drinks/Week Comments Never 0 (1 standard drink = 0.6 oz pur e alcohol) Comments No Sex and Gender Information Value Date Recorded Sex Assigned at Not on file Legal Sex Female 7:32 PM EDT Gender Identity Not on file Sexual Orientation Not on file Last Filed Vital Signs Vital Sign Reading Time Taken Comments Blood Pressure 137/58 09/11/2024 10:42 AM EDT Pulse 70 09/11/2024 10:42 AM EDT Temperature 36.5 C (97.7 F) 03/13/2024 10:49 AM EST Respiratory Rate 18 09/11/2024 10:42 AM EDT Oxygen Saturation 98% 09/11/2024 10:42 AM EDT Inhaled Oxygen Concentration - - Weight 69.4 kg (153 lb) 09/11/2024 10:42 AM EDT Height 170.2 cm (5' 7 ) 09/11/2024 10:42 AM EDT Body Mass Index 23.96 09/11/2024 10:42 AM EDT Plan of Treatment Health Maintenance Due Date Last Done Comments [facility]-Bone Density Scan 1952 [facility]-Depression Screening 1952 [facility]-Hepatitis C Screening 1952 [facility]-Medicare Annual Wellness (AWV) 1950 [facility]-/Child/Adol SDOH Screenings 1952 Diabetes: Dental Exam 1962 [facility]- SDOH Screenings 1970 [facility]-Adult SDOH Screenings 1970 CT Colonography 1997 Colonoscopy 1997 FIT-DNA 1997 FIT 1997 FOBT 1997 Sigmoidoscopy 1997 [facility]-Colorectal Cancer Screening 1997 [facility]-Breast Cancer Screening 2002 [facility]-Zoster Vaccines (1 of 2) 2002 [facility]-RSV Vaccine: 60+ Years or (1 - Risk 60-74 years 1-dose series) 2012 [facility]-Diabetes: Hemoglobin A1C 08/09/2019 02/09/2019 [id number] Vaccine (2 - 2024- season) 2024 06/15/2020 [facility]-Influenza Vaccine (#1) 12/07/202402/17, 01/22/2023, 12/21/2021, Additional history exists [facility]-DTaP,Tdap,and Td Vaccines (2 - Td or Tdap) 06/29/2030 06/29/2020 [facility]-Pneumococcal Vaccine: 50+ Years Completed 06/29/2020, 02/09/2019, 02/14/2016 HPV Vaccines Aged Out No longer eligi ble based on patient's age to complete this topic [facility]-HIB Vaccines Aged Out No longer e ligible based on patient's age to complete this topic [facility]-Hepatitis A Vaccines Aged Out No longer eligible based on patient's age to complete this topic [facility]-IPV Vaccines Aged Out No longer e ligible based on patient's age to complete this topic [facility]-Rotavirus Vaccines Aged Out No lo nger eligible based on patient's age to complete this topic Insurance [facility] MEDICARE ADVANTAGE [employer] MEDICAID [employer] MEDICARE Care Teams Network Operations Lead Relationship Specialty Start Date End Date Sonido Melton APRN [address] [place] [id number] PCP - General 11/27/23
== END 2024-12-16 23:59 | disposition home or self-care (01) ==
LOC: RAD 09:25
PROVIDERS: PCP Nurse Practitioner Family; Visit Provider Physician Assistant
DX: M25.842 Other specified joint disorders, left hand (principal); M79.89 Other specified soft tissue disorders; M79.642 Pain in left hand; M79.645 Pain in left finger(s)
CPT/HCPCS: 73130